=== PATIENT | female | born 1990 | race Caucasian/White ===

== ENCOUNTER → 2022-04-28 11:56 | Outpatient (BNVA) | payer OTHER, SELFPAY | PROVIDERS: Visit Provider Nurse Practitioner Family | DX: R07.0 Pain in throat (principal) | CPT/HCPCS: 87071; 87880 ==

== ENCOUNTER → 2022-06-07 09:59 | Outpatient (BNVA) | payer OTHER, SELFPAY | PROVIDERS: Visit Provider Nurse Practitioner Family | DX: R69 Illness, unspecified (principal); Z11.52 Encounter for screening for COVID-19 | CPT/HCPCS: 87400; 87426 ==

== ENCOUNTER → 2022-09-06 10:55 | Outpatient (BNVA) | payer OTHER, SELFPAY | PROVIDERS: Visit Provider Emergency Medicine | DX: J35.8 Other chronic diseases of tonsils and adenoids (principal); J02.9 Acute pharyngitis, unspecified | CPT/HCPCS: 87070; 87880 ==

== ENCOUNTER → 2023-01-29 09:57 | Outpatient (BNVA) | payer OTHER, SELFPAY | PROVIDERS: PCP Nurse Practitioner; Visit Provider Nurse Practitioner | DX: R50.9 Fever, unspecified (principal); J01.90 Acute sinusitis, unspecified; B96.89 Other specified bacterial agents as the cause of diseases classified elsewhere; E16.2 Hypoglycemia, unspecified; R73.09 Other abnormal glucose | CPT/HCPCS: 80053; 83036; 87400; 87880 ==

== ENCOUNTER → 2023-11-01 13:57 | Outpatient (BNVA) | payer OTHER, SELFPAY | PROVIDERS: PCP Nurse Practitioner; Visit Provider Nurse Practitioner | DX: R05.9 Cough, unspecified (principal) | CPT/HCPCS: 87400 ==

== ENCOUNTER → 2024-03-18 16:27 | Outpatient (BNVA) | payer OTHER, SELFPAY | PROVIDERS: PCP Nurse Practitioner; Visit Provider Nurse Practitioner | DX: R50.9 Fever, unspecified (principal) | CPT/HCPCS: 87880 ==

== ENCOUNTER → 2024-03-23 15:46 | Outpatient (BNVA) | payer OTHER, SELFPAY | PROVIDERS: PCP Nurse Practitioner; Visit Provider Nurse Practitioner | DX: R50.9 Fever, unspecified (principal) | CPT/HCPCS: 87400 ==

== ENCOUNTER → 2024-11-13 14:00 | Outpatient (BNVA) | payer BC, SELFPAY | PROVIDERS: PCP Nurse Practitioner; Visit Provider Nurse Practitioner | DX: Z20.2 Contact with and (suspected) exposure to infections with a predominantly sexual mode of transmission (principal); Z12.4 Encounter for screening for malignant neoplasm of cervix | CPT/HCPCS: 87491; 87591; 87661; 88175 ==